=== PATIENT | female | born 1985 | race Caucasian/White ===

== ENCOUNTER 2017-01-18 08:26 | Inpatient (IN) | payer OTHER ==
[2017-01-18] MEDS: LACTATED RINGERS 1,000 ML IV SCH ×4 (09:00→16:07)
[2017-01-18] MEDS ORDERED: LACTATED RINGERS 1,000 ML with OXYTOCIN 10000 MU/ML 20 MU IV ONE ×2 (09:20→09:40)
[2017-01-18] MEDS ORDERED: CEFAZOLIN SODIUM 1 GM PDS ONE (09:35)
[2017-01-18] MEDS ORDERED: ONDANSETRON HCL 4 MG/2 ML SOL ONE (09:36)
[2017-01-18] MEDS ORDERED: OXYTOCIN 10000 MU/ML SOL ONE ×2 (09:36→09:38)
[2017-01-18] MEDS ORDERED: EPHEDRINE SULFATE 50 MG/ML SOL ONE (09:36)
[2017-01-18] MEDS ORDERED: CEFAZOLIN SODIUM 1 GM PDS IVP ONE (09:58)
[2017-01-18] MEDS ORDERED: CITRIC ACID/SODIUM CITRATE SOL PO ONE (09:58)
[2017-01-18] MEDS ORDERED: PATIENT EDUCATION 1 MISC PRN (10:36)
[2017-01-18 10:38] LABS: BASOPHILS % (AUTO) 1 % (0-3); EOSINOPHILS % (AUTO) 1 % (0-9); HEMATOCRIT 30 % (35-47); MEAN CORPUSCULAR HGB CONC 36.7 gm/dl (32.0-36.0); MEAN CORPUSCULAR VOLUME 85 fL (81-99); MONOCYTES % (AUTO) 6.9 % (0-12); NEUTROPHILS % (AUTO) 82.9 % (37-80)
[2017-01-18] MEDS ORDERED: METHYLERGONOVINE MALEATE 0.2 MG TAB PO PRN (10:47)
[2017-01-18] MEDS ORDERED: FLEET ENEMA PR PRN (10:47)
[2017-01-18] MEDS ORDERED: WITCH HAZEL 1 EA PAD TOP PRN (10:47)
[2017-01-18] MEDS ORDERED: DIPHENHYDRAMINE 25 MG CAP PO PRN (10:47)
[2017-01-18] MEDS ORDERED: BENZOCAINE/MENTHOL 1 SPR TOP PRN (10:47)
[2017-01-18] MEDS ORDERED: BISACODYL 10 MG SUP PR PRN (10:47)
[2017-01-18] MEDS ORDERED: TEMAZEPAM 15MG 15 MG CAP PO PRN (10:47)
[2017-01-18] MEDS ORDERED: ONDANSETRON HCL 4 MG/2 ML SOL IV PRN (10:47)
[2017-01-18] MEDS: KETOROLAC TROMETHAMINE 30 MG/ML SOL IV PRN ×2 (11:36→19:58)
[2017-01-18 12:22] LABS: ABO AB; ANTIBODY SCREEN Negative; RH TYPE Negative
[2017-01-18] MEDS: APAP/HYDROCODONE 325/5 TAB PO PRN ×2 (13:50→18:29)
[2017-01-18 14:11] LABS: APPEARANCE,URINE Clear; BILIRUBIN,URINE 1+ (NEGATIVE); GLUCOSE, URINE (UA) NEGATIVE (NEGATIVE); KETONES,URINE NEGATIVE (NEGATIVE); LEUKOCYTE ESTERASE ,URINE NEGATIVE (NEGATIVE); NITRATE,URINE NEGATIVE (NEGATIVE); OCCULT BLOOD,URINE 3+ (NEG-TRACE)
[2017-01-18 14:37] LABS: COLOR,URINE Dark Yellow; ICTOTEST,URINE NEGATIVE (NEGATIVE)
[2017-01-18 14:38] LABS: RBC,URINE 125-150 (0-3AV/HPF); WBC,URINE 0-2 (0-5AV/HPF)
[2017-01-18] MEDS ORDERED: CEFAZOLIN (PREMIX) 1 GM 1 GM/50 ML SOL IV SCH (15:59)
[2017-01-18] MEDS: DOCUSATE SODIUM 100 MG SGL PO SCH (21:17)
[2017-01-19] MEDS ORDERED: KETOROLAC TROMETHAMINE 30 MG/ML SOL ONE ×2 (01:55→08:01)
[2017-01-19] MEDS: KETOROLAC TROMETHAMINE 30 MG/ML SOL IV PRN ×2 (02:01→08:23)
[2017-01-19] MEDS: LACTATED RINGERS 1,000 ML IV SCH ×2 (02:14→07:25)
[2017-01-19 07:20] LABS: ABO AB
[2017-01-19 07:21] LABS: RH TYPE Negative
[2017-01-19] MEDS: MULTIVITAMIN2 1 EA TAB PO SCH (08:23)
[2017-01-19] MEDS: FOLIC ACID 1 MG TAB PO SCH (08:23)
[2017-01-19] MEDS: DOCUSATE SODIUM 100 MG SGL PO SCH ×2 (08:23→21:16)
[2017-01-19] MEDS: SODIUM CHLORIDE 0.9% FLUSH 10 ML SOL IV SCH ×2 (08:29→16:50)
[2017-01-19] MEDS ORDERED: KETOROLAC TROMETHAMINE 30 MG/ML SOL IV ONE (08:31)
[2017-01-19] MEDS ORDERED: AZITHROMYCIN 250 MG TAB ONE (09:09)
[2017-01-19] MEDS: AZITHROMYCIN 250 MG TAB PO SCH (09:20)
[2017-01-19] MEDS: FERROUS SULFATE 325 MG TAB PO SCH (09:20)
[2017-01-19] MEDS: APAP/HYDROCODONE 325/5 TAB PO PRN ×3 (11:48→21:15)
[2017-01-19] MEDS: IBUPROFEN 600 MG TAB PO PRN (14:46)
[2017-01-20] MEDS: APAP/HYDROCODONE 325/5 TAB PO PRN ×5 (02:05→23:35)
[2017-01-20] MEDS ORDERED: ONDANSETRON HCL 4 MG/2 ML 4 MG in SODIUM CHLORIDE 0.9% 100 ML 100 ML IV ONE (08:17)
[2017-01-20] MEDS: DOCUSATE SODIUM 100 MG SGL PO SCH ×2 (09:19→20:51)
[2017-01-20] MEDS: MULTIVITAMIN2 1 EA TAB PO SCH (09:19)
[2017-01-20] MEDS: IBUPROFEN 600 MG TAB PO PRN ×3 (09:19→23:35)
[2017-01-20] MEDS: FOLIC ACID 1 MG TAB PO SCH (09:19)
[2017-01-20] MEDS: FERROUS SULFATE 325 MG TAB PO SCH (09:19)
[2017-01-20] MEDS ORDERED: AZITHROMYCIN 250 MG TAB ONE ×2 (17:45→17:51)
[2017-01-20] MEDS: AZITHROMYCIN 250 MG TAB PO SCH (17:49)
[2017-01-21] MEDS: FERROUS SULFATE 325 MG TAB PO SCH (09:05)
[2017-01-21] MEDS: DOCUSATE SODIUM 100 MG SGL PO SCH (09:05)
[2017-01-21] MEDS: APAP/HYDROCODONE 325/5 TAB PO PRN ×2 (09:06→13:56)
[2017-01-21] MEDS: MULTIVITAMIN2 1 EA TAB PO SCH (09:06)
[2017-01-21] MEDS: FOLIC ACID 1 MG TAB PO SCH (09:06)
[2017-01-21] MEDS: IBUPROFEN 600 MG TAB PO PRN (09:06)
[2017-01-21] MEDS: AZITHROMYCIN 250 MG TAB PO SCH (09:06)
[2017-01-21 10:19] VITALS: BP 124/73; PULSE 88; RESP 12; TEMP 98.2; O2SAT 95
== END 2017-01-21 14:15 | disposition home or self-care (01) | DRG 766 ==
LOC: OBSVTOIN 08:26 → OB 08:26
PROVIDERS: ADMIT Family Medicine; ATTEND Family Medicine
PROC: 0UB70ZZ Excision of Bilateral Fallopian Tubes, Open Approach (ICD-10-PCS; 2017-01-18)
PROC: 10D00Z1 Extraction of Products of Conception, Low, Open Approach (ICD-10-PCS; principal; 2017-01-18 09:17)
DX: O45.93 Premature separation of placenta, unspecified, third trimester (principal); Z30.2 Encounter for sterilization; Z3A.38 38 weeks gestation of pregnancy; Z37.0 Single live birth
CPT/HCPCS: 36415; 59025; 74000; 81001; 85018; 85025; 86850; 86900; 86901; 99001; J0690; J1885; J2405; J2590; A6219